=== PATIENT | female | born 1970 | race Caucasian/White ===

== ENCOUNTER 2024-03-28 02:30 | Inpatient (IN) | payer OTHER ==
[~2024-03-28] VITALS: Ht 160 cm; Wt 127.2 kg
[2024-03-28] MEDS ORDERED: Lactated Ringer's 1,000 ML IV ONE (03:25)
[2024-03-28] MEDS ORDERED: Ketorolac Tromethamine 15mg Vial IV ONE (03:25)
[2024-03-28] MEDS ORDERED: FentaNYL Citrate 50 MCG/ML 2 ML Injection IV ONE (03:25)
[2024-03-28] MEDS ORDERED: Ondansetron HCl 2 MG / ML 2ML Vial IV ONE (03:25)
[2024-03-28 03:42] LABS: Source, Urine Clean Catch
[2024-03-28 03:49] LABS: BASOPHILS PERCENT AUTO 1 % (0-2); EOSINOPHILS ABSOLUTE AUTO 0.31 K/mm3 (0.00-0.68); EOSINOPHILS PERCENT AUTO 3 % (0-6); Hematocrit 39.5 % (33.0-51.0); Hemoglobin 13.1 g/dL (11.5-16.0); IMMATURE GRAN ABSOLUTE AUTO 0.05 K/mm3 (0.00-0.10); IMMATURE GRAN PERCENT AUTO 0 % (0-1); LYMPHOCYTES ABSOLUTE AUTO 2.53 K/mm3 (0.84-5.20); LYMPHOCYTES PERCENT AUTO 22 % (21-46); MONOCYTES ABSOLUTE AUTO 0.86 K/mm3 (0.16-1.47); MONOCYTES PERCENT AUTO 8 % (4-13); Mean Corpuscular HGB 28.4 pg (26.0-34.0); Mean Corpuscular HGB Conc 33.2 g/dL (31.5-36.5); Mean Corpuscular Volume 86 fL (80-100); Mean Platelet Volume 9.3 fL (9.1-12.4); NEUTROPHILS ABSOLUTE AUTO 7.58 K/mm3 (1.96-9.15); NEUTROPHILS PERCENT AUTO 66 % (41-73); Platelet Count 234 K/mm3 (150-400); RDW Coefficient Variation 13.3 % (11.7-14.2); RDW Standard Deviation 41.7 fL (35.1-46.3); Red Blood Cell Count 4.61 M/mm3 (3.80-5.20); White Blood Cell Count 11.43 K/mm3 (4.00-11.30)
[2024-03-28 04:12] LABS: Bilirubin, Urine Neg (Neg); Blood, Urine Neg (Neg); Glucose Qualitative, Urine Neg (Neg); Ketones, Urine Neg (Neg); Leukocyte Esterase, Urine 3+ (Neg); Nitrite, Urine Neg (Neg); Protein, Urine Neg (Neg); Urobilinogen, Urine NORM (Normal)
[2024-03-28 04:18] LABS: Albumin, Blood 3.5 g/dL (3.4-5.0); Albumin/Globulin Ratio 0.8 (0.8-1.8); Bilirubin, Total 0.3 mg/dL (0.1-1.0); Calcium, Blood 9.1 mg/dL (8.5-10.1); Creatinine, Blood 0.82 mg/dL (0.40-1.00); Globulin, Blood 4.2 g/dL (2.2-4.0); Potassium, Blood 3.4 mmol/L (3.5-5.5); Total Protein, Blood 7.7 g/dL (6.4-8.2)
[2024-03-28 04:35] LABS: Appearance, Urine Hazy (Clear); Color, Urine Yellow (P-Yellow)
[2024-03-28 04:36] LABS: Bacteria Many /hpf; Red Blood Cells, Urine 0-2 /hpf (0-2); Squamous Epithelial Cells Mod /hpf (Few); White Blood Cells, Urine 25-50 /hpf (0-5)
[2024-03-28] MEDS ORDERED: HYDROmorphone HCl/Pf 1MG SYR IV ONE (05:45)
[2024-03-28] MEDS ORDERED: Ondansetron HCl 2 MG / ML 2ML Vial IV PRN (05:55)
[2024-03-28] MEDS ORDERED: FLU VACC TS2024-25(6MOS UP)/PF 45 MCG/0.5 ML SYRINGE IM ONE (05:55)
[2024-03-28] MEDS ORDERED: FentaNYL Citrate 50 MCG/ML 2 ML Injection IV PRN (05:55)
[2024-03-28] MEDS ORDERED: NS 1,000 ML IV SCH ×3 (06:00→08:00)
[2024-03-28] MEDS ORDERED: CefTRIAXone Sodium 1,000 MG in NS 100 ML IV SCH (06:15)
[2024-03-28] MEDS ORDERED: Potassium Chloride 40 MEQ in NS 250 ML IV ONE (06:20)
[2024-03-28] MEDS ORDERED: HYDROmorphone HCl/Pf 1MG SYR IV PRN (10:45)
[2024-03-28] MEDS ORDERED: OMEP20ER PO (11:41)
[2024-03-28] MEDS ORDERED: MONT10T PO (11:42)
[2024-03-28] MEDS ORDERED: HYDCHL25 PO (11:42)
[2024-03-28] MEDS ORDERED: LOSA50 PO (11:42)
[2024-03-28] MEDS ORDERED: ZYRTEC10 M2 PO (11:42)
[2024-03-28] MEDS ORDERED: HydrALAZINE HCl 20 MG / ML 1ML Vial IV PRN (14:05)
[2024-03-28 15:08] VITALS: BP 152/84
--- NOTE | 2024-03-28 16:16 | NUR ---
ADMISSION NOTE MS PRATT WAS ADMITTED TO MEDICAL UNIT FROM ER AT 1500HRS, TRANSPORTED ON [facility] AND HER IS AT HER BEDSIDE. SHE WAS GIVEN DILAUDID PRIOR TO TRANSFER AND SHE SAID THAT IS HELPING THE PAIN AND SHE HAS BEEN DOZING ON AND OFF SINCE ARRIVAL. SHE HAD ONE EPISODE OF EMESIS. SHE IS NPO WITH IVF INFUSING. AWAITING SURGERY CONSULT - ER NURSE KAN SAID SHE SPOKE WITH DR ALDANA. ON TELE, ST LOW 100S PER [place]. SHE LIVES WITH HER AND REPORTS BEING INDEPENDENT AT HOME. SHE REPORTS LBM 03/27. DENIES PASSING FLATUS SINCE ADMISSION. BED LOW, CALL LIGHT IN REACH.
[2024-03-28] MEDS ORDERED: Calcium Carbonate 500 MG Tab Chew PO PRN (16:55)
[2024-03-28 20:13] VITALS: BP 140/92
[2024-03-29 04:18] VITALS: BP 129/69
[2024-03-29 05:14] LABS: BASOPHILS ABSOLUTE AUTO 0.05 K/mm3 (0.00-0.23); BASOPHILS PERCENT AUTO 1 % (0-2); EOSINOPHILS ABSOLUTE AUTO 0.23 K/mm3 (0.00-0.68); EOSINOPHILS PERCENT AUTO 3 % (0-6); IMMATURE GRAN ABSOLUTE AUTO 0.04 K/mm3 (0.00-0.10); IMMATURE GRAN PERCENT AUTO 0 % (0-1); LYMPHOCYTES ABSOLUTE AUTO 2.24 K/mm3 (0.84-5.20); LYMPHOCYTES PERCENT AUTO 24 % (21-46); MONOCYTES ABSOLUTE AUTO 0.99 K/mm3 (0.16-1.47); MONOCYTES PERCENT AUTO 11 % (4-13); Mean Corpuscular HGB Conc 32.4 g/dL (31.5-36.5); Mean Corpuscular Volume 86 fL (80-100); Mean Platelet Volume 9.5 fL (9.1-12.4); NEUTROPHILS ABSOLUTE AUTO 5.79 K/mm3 (1.96-9.15); NEUTROPHILS PERCENT AUTO 62 % (41-73); Platelet Count 253 K/mm3 (150-400); RDW Coefficient Variation 13.4 % (11.7-14.2); RDW Standard Deviation 42.3 fL (35.1-46.3); Red Blood Cell Count 4.29 M/mm3 (3.80-5.20); White Blood Cell Count 9.34 K/mm3 (4.00-11.30)
[2024-03-29 05:46] LABS: Albumin, Blood 2.9 g/dL (3.4-5.0); Albumin/Globulin Ratio 0.8 (0.8-1.8); Bilirubin, Total 0.6 mg/dL (0.1-1.0); Bun/Creatinine Ratio 20.6 (12.0-20.0); Calcium, Blood 8.4 mg/dL (8.5-10.1); Creatinine, Blood 0.73 mg/dL (0.40-1.00); Globulin, Blood 3.7 g/dL (2.2-4.0); Magnesium, Blood 2.1 mg/dL (1.6-2.4); Phosphorus, Blood 3.3 mg/dL (2.5-4.9); Potassium, Blood 3.7 mmol/L (3.5-5.5); Total Protein, Blood 6.6 g/dL (6.4-8.2)
[2024-03-29] MEDS ORDERED: Pantoprazole Sodium 40 MG Injection IV SCH (06:00)
--- NOTE | 2024-03-29 06:16 | NUR ---
SHIFT SUMMARY AT START OF SHIFT, PT LYING IN BED RESTING. STATED SHE WAS FEELING NAUSEOUS. MEDICATED FOR NAUSEA PER EMAR. PT DENIES NEED FOR PAIN MEDICATION. WILL CONTINUE TO MONITOR. DR. CARROLL ORDERED BOWEL CARE PROTOCOL, THIS WAS NOT YET ORDERED. PT CONTINUES TO SLEEP SOUDNDLY.
[2024-03-29 07:24] VITALS: BP 121/70
[2024-03-29] MEDS ORDERED: Docusate Sodium 100 MG Cap PO SCH (09:00)
[2024-03-29] MEDS ORDERED: Sennosides 8.6 MG Tab PO SCH (09:00)
[2024-03-29 14:52] VITALS: BP 117/62
--- NOTE | 2024-03-29 16:46 | NUR ---
Shift Summary Ms Gill has had flatus, no stool. She has ambulated in the halls several times with some generalised abdominal feelings of fullness and discomfort, some abdominal pain, not sharp or severe like it was yesterday, pain mild when sitting. She has tolerated a clear liquid lunch, feeling full and distended but not nauseaus. Tele SR, no calls from telecommunications clerk. resting in chair, call light in reach.
[2024-03-29 19:20] VITALS: BP 154/86
[2024-03-30 05:31] VITALS: BP 135/76
--- NOTE | 2024-03-30 06:10 | NUR ---
SHIFT SUMMARY PATIENT IS ALERT AND ORIENTED. PATIENT HAS HAD NO ACUTE EVENTS THIS SHIFT. VITAL SIGNS REVIEWED. PATIENT HAS DENIED PAIN, NAUSEA, SOB OR VOMITTING THIS SHIFT. PATIENT STILL HAS HAD NO BM. PATIENT HAS BEEN IND AND WALKING THE [facility]. IV ABX INFUSED ORDERED. BED IN LOCKED AND LOWEST POSITION.
[2024-03-30 06:23] LABS: Hematocrit 34.7 % (33.0-51.0); Hemoglobin 11.4 g/dL (11.5-16.0); Mean Corpuscular HGB 28.4 pg (26.0-34.0); Mean Corpuscular HGB Conc 32.9 g/dL (31.5-36.5); Mean Corpuscular Volume 87 fL (80-100); Mean Platelet Volume 9.8 fL (9.1-12.4); Platelet Count 193 K/mm3 (150-400); RDW Coefficient Variation 13.2 % (11.7-14.2); RDW Standard Deviation 41.1 fL (35.1-46.3); Red Blood Cell Count 4.01 M/mm3 (3.80-5.20)
[2024-03-30 06:50] LABS: Bun/Creatinine Ratio 13.5 (12.0-20.0); Calcium, Blood 8.2 mg/dL (8.5-10.1); Creatinine, Blood 0.67 mg/dL (0.40-1.00); Magnesium, Blood 2.1 mg/dL (1.6-2.4); Potassium, Blood 3.4 mmol/L (3.5-5.5)
[2024-03-30 07:37] VITALS: BP 132/80
[2024-03-30] MEDS ORDERED: Polyethylene Glycol 3350 17 gm PO ONE (08:00)
[2024-03-30] MEDS ORDERED: Docusate Sodium 100 MG Cap PO SCH (09:00)
[2024-03-30] MEDS ORDERED: FERSU300 PO (12:57)
[2024-03-30] MEDS ORDERED: FLUTICASONE PRO12 GM INH (12:57)
[2024-03-30] MEDS ORDERED: ALBU90OI INH (13:37)
[2024-03-30] MEDS ORDERED: Albuterol HFA200 ACT/6.7 GM INH INH PRN (13:45)
[2024-03-30] MEDS ORDERED: Albuterol 2.5 MG/3 ML VIAL INH PRN (13:50)
[2024-03-30] MEDS ORDERED: Tiotropium Bromide 2.5 MCG/ACT MIST INHAL (10 ACT/4 GM) INH SCH (13:50)
--- NOTE | 2024-03-30 14:11 | NUR ---
Upon receiving a referral for spiritual care, I visited the patient. She tells me about her SBO and her prayer that it will resolve on its own. She shares about her positive family support and her belief in God. I provided encouragement and prayer. Patient responded well and showed signs of an eleveted mood.
[2024-03-30 15:17] VITALS: BP 137/89
--- NOTE | 2024-03-30 18:30 | NUR ---
SUMMARY- PT A/O X4, INDEPENDANT IN ROOM. ENC AMBULATION, CIRCLED ENTIRE UNIT MULT TIMES. STATES SHE IS PASSING GAS. STARTED ON DSS, MIRILAX AND SENEKOT AND PRUNE JUISC TODAY. PT HAD 3-4 BM'S TODAY. STATED SEMIFORMED BROWN FIRST FEW, INCREASINGLY MORE LOOSE. PT TOLERATING SIPS OF CLEARS AND UP TO FULL LIQ BUT STATES SHE HAS FELT PROGRESSIVELY WORSE THROUOUT THE SHIFT. HER ABD FEELS "HARD" TO HER. PT DENIES NAUSEA. ADMITS TO ABD DISCOMFORT BUT REFUSING PAIN MEDS THAT MAY CONSTIPATE HER MORE. DR ALDANA EVALUATED PT THIS AM, KEEPING PT ANOTHER DAY TO SEE IF SBO CLEARS. WILL REPORT TO NOC RN
[2024-03-30] MEDS ORDERED: Mag Hydrox/AL Hydrox/Simeth 30 ML UDC PO PRN (18:55)
[2024-03-30] MEDS ORDERED: NS 1,000 ML IV SCH (18:55)
[2024-03-30] MEDS ORDERED: HYDROmorphone HCl/Pf 1MG SYR IV PRN (18:55)
[2024-03-30 21:24] VITALS: BP 149/103
[2024-03-30 21:25] VITALS: BP 154/91
[2024-03-31] MEDS ORDERED: Pantoprazole Sodium 20 MG Tab PO SCH (06:00)
--- NOTE | 2024-03-31 07:23 | NUR ---
SHIFT SUMMARY PT IV BEGAN LEAKING AND WOULD NOT ALLOW FLUSH TO ENTER VEIN. IV REMOVED, INTACT. OPAL WEBSTER PLACED NEW IV IN UPPER LEFT ARM/CHEST AREA. FLUIDS RUNNING. PT HAS BEEN COOPERATIVE WITH CARE.
[2024-03-31 07:36] VITALS: BP 115/90
[2024-03-31] MEDS ORDERED: Loratadine 10 MG Tab PO SCH (09:00)
[2024-03-31 15:30] VITALS: BP 148/93
[2024-03-31] MEDS ORDERED: NS 1,000 ML IV SCH (18:05)
--- NOTE | 2024-03-31 19:41 | NUR ---
SUMMARY- PT A/O X4, INDEPENDANT IN ROOM. AMBULATED IN THE [place]ENDES ONCE TODAY, DOESN'T FEEL MUCH LIKE MOVING TODAY IN RELATION TO DISCOMFORT OF ABD. OVERNIGHT PT FEELS GI STATUS HAD GOTTEN WORSE. STATES FEELING MORE BLOATED AND DISTENDED. STATES DISCOMFORT BUT DECLINES DILAUDID- DOESN'T WANT TO SLOW GI MOTILITY. PT STATES NO BM LAST NIGHT OR TODAY. SLOWED DOWN ON EATING AND NOT ABLE TO TOLERATE DIET. KUB COMPLETED TODAY. PLAN FOR SMALL BOWEL FOLLOWTHROUGH TOMORROW WITH DR WADE. WILL REPORT TO NOC OPAL AGUIRRE
--- NOTE | 2024-04-01 04:17 | NUR ---
SHIFT SUMMARY PATIENT HAD NO ACUTE CHANGES. AXOX 4, NPO, AND INDEPENDENT IN ROOM/HALLS. DENIES CHEST PAIN AND SOB. VSS/AFEBRILE. REPORTED ABDOMINAL PAIN X ONE AND IV DILAUDID 1 MG GIVEN X ONE. REPORTED NAUSEOUS AFTER DILAUDID AND IV ZOFRAN GIVEN WITH GOOD EFFECT. PIV INTACT. NS INFUSING @ 50 mL/HR. COOPERATIVE WITH CARE. CALL LIGHT IN REACH. BED IN LOWEST POSITION. WILL CONTINUE TO MONITOR UNTIL DAY SHIFT NURSE ASSUMES CARE.
[2024-04-01 05:05] VITALS: BP 141/77
[2024-04-01 07:47] VITALS: BP 133/86
[2024-04-01] MEDS ORDERED: Hydrocortisone 1% Cream 30 gm TOP SCH (14:00)
[2024-04-01 15:06] VITALS: BP 148/94
--- NOTE | 2024-04-01 16:29 | NUR ---
NOTIFIED OF PATIENT WITH 1400ML EMESIS DURING SMALL BOWEL SERIES. DR. MOHAN STATED TO INFORM DR. ALDANA. DR. ALDANA NOTIFIED AND STATED TO NOT ADMINISTER MORE CONTRACT, BIT SHARPENER OPERATOR NOTIFIED AT TIME FO TRANSFER TO X [facility]AY. NEW ORDERS RECIEVED FROM DR. MOHAN FOR COMPAZINE ONE TIME ORDER. WILL ADMINISTER WHEN PATIENT ARRIVED BACK TO UNIT.
[2024-04-01] MEDS ORDERED: Prochlorperazine Edisylate 10 mg Vial IV PRN ×2 (16:30→18:40)
[2024-04-01] MEDS ORDERED: Acetaminophen 325 MG TABLET PO PRN (17:05)
--- NOTE | 2024-04-01 18:42 | NUR ---
SHIFT SUMMARY PATIENT A/OX4, PLEASANT AND COOPERATIVE WITH CARE. TEARFUL AT TIMES R/T HOSPITAL STAY AND "NOT WANTING SURGERY" FOR SBO. SMALL BOWEL SERIES OBTAINED THIS SHIFT. PATIENT COMPLAINING OF ABDOMINAL PAIN AND NAUSEA, MEDICATED PER MAR. INDEPENDENT IN ROOM. AFTER CONTRAST WAS ADMINISTERED FRO SMALL BOWEL SERIES PATIENT BECAME INCREASINGLY NAUSEAS AND PAINFUL, WAS PREMEDICATED FOR PROCEDURE, BUT WAS INEFFECTIVE. RECIEVED ORDERS FROM DR. MOHAN TO CHANGES ZOFRAN TO COMPAZINE IF MORE EFFECTIVE FOR PATIENT. PATIENT STATES IS PASSING GAS, NO BOWEL MOVEMENTS. 1 EPISODE OF EMESIS TODAY, 1400ML. FAMILY CAME TO VISIT PATIENT THIS EVENING. DRESSING TO IV CHANGED THIS SHIT, NO OTHER CONCERNS AT THIS TIME.
[2024-04-01 19:50] VITALS: BP 152/80
--- NOTE | 2024-04-02 04:38 | NUR ---
NOC SUMMARY- PT REPORTS HAVING SOME LOOSE BM'S AND PASSING GAS. PT DENIES DISCOMFORT OR N/V. PT IS AMBULATORY TO RESTROOM. PT CURRENTLY RESTING COMFORTABLY. CALL LIGHT IN REACH.
[2024-04-02 05:07] VITALS: BP 156/95
[2024-04-02 06:05] LABS: BASOPHILS ABSOLUTE AUTO 0.06 K/mm3 (0.00-0.23); BASOPHILS PERCENT AUTO 1 % (0-2); EOSINOPHILS ABSOLUTE AUTO 0.34 K/mm3 (0.00-0.68); EOSINOPHILS PERCENT AUTO 6 % (0-6); Hematocrit 34.1 % (33.0-51.0); IMMATURE GRAN ABSOLUTE AUTO 0.03 K/mm3 (0.00-0.10); IMMATURE GRAN PERCENT AUTO 1 % (0-1); LYMPHOCYTES ABSOLUTE AUTO 1.69 K/mm3 (0.84-5.20); LYMPHOCYTES PERCENT AUTO 28 % (21-46); MONOCYTES ABSOLUTE AUTO 0.53 K/mm3 (0.16-1.47); MONOCYTES PERCENT AUTO 9 % (4-13); Mean Corpuscular HGB 28.3 pg (26.0-34.0); Mean Corpuscular HGB Conc 32.3 g/dL (31.5-36.5); Mean Corpuscular Volume 88 fL (80-100); Mean Platelet Volume 9.7 fL (9.1-12.4); NEUTROPHILS ABSOLUTE AUTO 3.36 K/mm3 (1.96-9.15); NEUTROPHILS PERCENT AUTO 56 % (41-73); Platelet Count 213 K/mm3 (150-400); RDW Coefficient Variation 13.5 % (11.7-14.2); RDW Standard Deviation 42.6 fL (35.1-46.3); Red Blood Cell Count 3.89 M/mm3 (3.80-5.20); White Blood Cell Count 6.01 K/mm3 (4.00-11.30)
[2024-04-02 06:37] LABS: Albumin, Blood 2.8 g/dL (3.4-5.0); Albumin/Globulin Ratio 0.8 (0.8-1.8); Bilirubin, Total 0.4 mg/dL (0.1-1.0); Bun/Creatinine Ratio 11.7 (12.0-20.0); Calcium, Blood 8.3 mg/dL (8.5-10.1); Creatinine, Blood 0.69 mg/dL (0.40-1.00); Globulin, Blood 3.6 g/dL (2.2-4.0); Potassium, Blood 3.5 mmol/L (3.5-5.5); Total Protein, Blood 6.4 g/dL (6.4-8.2)
[2024-04-02 07:30] VITALS: BP 136/82
[2024-04-02] MEDS ORDERED: MIRALAX17 GM PO (12:53)
--- NOTE | 2024-04-02 13:26 | NUR ---
DISCHARGE NOTE PATIENT A/OX4, ABLE TO MAKE NEEDS KNOWN. PLEASANT AND COOPERATIVE WITH CARE. DISCHARGE ORDERS RECIEVED. NEW MEDICATION OF MIRALAX ORDERED, PATIENT STATES HAS MEDICATION AT HOME. IV REMOVED PRIOR TO DISCHARGE. PATIENT HAVING BOWEL MOVEMENTS AND DENIES PAIN OR NAUSEA WITH PO INTAKE. TOLERATING FOOD WELL. NO OTHER CONCERNS. PATIENT TRANSPORTED VIA WHEELCHAIR TO FAMILY VEHICLE.
== END 2024-04-02 13:05 | disposition home or self-care (01) | DRG 389 ==
LOC: ER 02:30 → MEDS 05:54 → ERHOLD 05:54 → MEDS 15:01
PROVIDERS: Emergency Medicine; Hospitalist; Internal Medicine; ADMIT Internal Medicine
DX: K56.600 Partial intestinal obstruction, unspecified as to cause (principal); N39.0 Urinary tract infection, site not specified; Z68.41 Body mass index [BMI] 40.0-44.9, adult; E87.6 Hypokalemia; J45.909 Unspecified asthma, uncomplicated; E61.1 Iron deficiency; I10 Essential (primary) hypertension; K43.9 Ventral hernia without obstruction or gangrene; E66.01 Morbid (severe) obesity due to excess calories; K21.9 Gastro-esophageal reflux disease without esophagitis; Z98.84 Bariatric surgery status; Z98.890 Other specified postprocedural states; Z88.1 Allergy status to other antibiotic agents; Z88.5 Allergy status to narcotic agent; Z79.899 Other long term (current) drug therapy
CPT/HCPCS: 36415; 74018; 74177; 74250; 80048; 80053; 81001; 83690; 83735; 83880; 84100; 84484; 85025; 85027; 87086; 93005; 93010; 94640; 94664; 94760; 96361; 96374-59; 96375; 99285-25; A9270; J0696; J0780; J1171; J1885; J2405; J2470; J3010; J3480; J7030; J7050; J7120; Q9967